=== PATIENT | female | born 1945 | race Caucasian/White ===

== ENCOUNTER 2020-10-25 18:17 | Inpatient (IN) | payer MEDICARE, BC ==
[2020-10-25] MEDS ORDERED: Dextrose 5% in Water 1,000 ML IV PRN (20:09)
[2020-10-25] MEDS ORDERED: Calcium Carbonate 500 MG ChewTAB PO PRN (20:09)
[2020-10-25] MEDS ORDERED: Dextrose 50% Abboject 50 ML SYRINGE SLOW IVP PRN (20:09)
[2020-10-25] MEDS ORDERED: Acetaminophen 325 MG TAB PO PRN (20:09)
[2020-10-25] MEDS ORDERED: HYDROcodone/Acetaminophen 5/325 mg Tablet PO PRN (20:09)
[2020-10-25] MEDS ORDERED: Ondansetron PF 4 MG/2 ML Vial IVP PRN (20:09)
[2020-10-25] MEDS ORDERED: Senokot S 8.6-50 MG TAB PO PRN (20:09)
[2020-10-25] MEDS ORDERED: Guaifenesin DM 100-10/5 ML UDCUP PO PRN (20:09)
[2020-10-25] MEDS ORDERED: Ventolin HFA Inhaler 60 PUFF INHALER INH PRN (20:14)
[2020-10-25] MEDS ORDERED: Cefepime 2 GM VIAL ONE (21:12)
[2020-10-25 21:39] LABS: #Eosinphils 0.5 10x3/uL (0.0-0.5); #Monocytes 0.5 10x3/uL (0.0-1.1); #Neutrophils 4.2 10x3/uL (1.5-8.4); %Basophils 0.4 % (0.0-2.0); %Eosinophils 6.6 % (0.0-6.0); %Lymphocytes 23.6 % (18.0-47.0); %Monocytes 7.9 % (0.0-10.0); %Neutrophils 61.1 % (40.0-75.0); Hemoglobin 12.6 g/dL (12.0-15.5); Mean Corpuscular HGB CONC 31.1 g/dL (32.0-36.0); Mean Corpuscular Hemoglobin 28.9 pg (27.0-33.0); Mean Corpuscular Volume 92.9 fl (81.6-98.3); Mean Platelet Volume 10.8 fl (7.4-10.4); Platelet Count 194 10x3/uL (150-450); Red Blood Cell (RBC) Count 4.36 10x6/uL (3.90-5.03); White Blood Cell (WBC) Count 6.8 10x3/uL (3.5-10.5)
[2020-10-25 21:49] LABS: ALT (SGPT) 42 U/L (8-55); AST (SGOT) 55 U/L (5-34); Albumin 3.8 g/dL (3.4-4.8); Alkaline Phosphatase 178 U/L (40-110); Anion Gap 16 mmol/L (10-20); BUN (Urea Nitrogen) 26 mg/dL (9.8-20.1); Bilirubin, Total 0.5 mg/dL (0.2-1.2); Calc. Creatinine Clearance 0 mL/min (70-130); Calcium 8.5 mg/dL (7.8-10.44); Carbon Dioxide 30 mmol/L (23-31); Chloride 100 mmol/L (98-107); Globulin 2.9 g/dL (2.4-3.5); Glucose 126 mg/dL (83-110); Potassium 4.5 mmol/L (3.5-5.1); Protein, Total 6.7 g/dL (5.8-8.1); Sodium 141 mmol/L (136-145)
[2020-10-25] MEDS ORDERED: Sodium Chloride 0.9% 500 ML IV SCH (22:00)
[2020-10-25] MEDS ORDERED: diphenhydrAMINE 50 MG/ML VIAL ONE (22:34)
[2020-10-25] MEDS ORDERED: methylPREDNISolone Sod Succ 40 MG VIAL IVP SCH (23:45)
[2020-10-25] MEDS ORDERED: Primidone 50 MG TAB PO SCH (23:45)
[2020-10-26 00:26] VITALS: BMI 56.0
[2020-10-26] MEDS: diphenhydrAMINE 50 MG/ML VIAL IVP SCH ×3 (00:33→16:07)
[2020-10-26] MEDS: Famotidine/PF 20 mg/2ml Vial SLOW IVP SCH ×3 (00:37→21:35)
[2020-10-26 06:17] LABS: #Eosinphils 0.1 10x3/uL (0.0-0.5); #Monocytes 0.1 10x3/uL (0.0-1.1); #Neutrophils 4.5 10x3/uL (1.5-8.4); %Basophils 0.5 % (0.0-2.0); %Eosinophils 1.8 % (0.0-6.0); %Lymphocytes 15.8 % (18.0-47.0); %Monocytes 2.5 % (0.0-10.0); %Neutrophils 78.9 % (40.0-75.0); Hemoglobin 12.3 g/dL (12.0-15.5); Mean Corpuscular HGB CONC 30.8 g/dL (32.0-36.0); Mean Corpuscular Hemoglobin 28.7 pg (27.0-33.0); Mean Corpuscular Volume 93.2 fl (81.6-98.3); Mean Platelet Volume 11.5 fl (7.4-10.4); Platelet Count 168 10x3/uL (150-450); Red Blood Cell (RBC) Count 4.28 10x6/uL (3.90-5.03); White Blood Cell (WBC) Count 5.7 10x3/uL (3.5-10.5)
[2020-10-26 06:30] LABS: Anion Gap 17 mmol/L (10-20); BUN (Urea Nitrogen) 23 mg/dL (9.8-20.1); Calc. Creatinine Clearance 88 mL/min (70-130); Calcium 8.3 mg/dL (7.8-10.44); Carbon Dioxide 23 mmol/L (23-31); Chloride 105 mmol/L (98-107); Glucose 171 mg/dL (83-110); Potassium 4.7 mmol/L (3.5-5.1); Sodium 140 mmol/L (136-145)
[2020-10-26] MEDS: HumaLOG 300 UNITS/3 ML VIAL SC PRN ×3 (07:53→23:26)
[2020-10-26] MEDS: Mometasone/Formoterol 200/5 60 PUFF INH SCH ×2 (07:57→20:20)
[2020-10-26] MEDS: Enoxaparin Sodium 40 MG/0.4 ML SYRINGE SC SCH (08:33)
[2020-10-26] MEDS: VANCOMYCIN 1.25 GM/250 ML BAG 1.25 GM in Premix Bag 1 BAG IVPB SCH (08:33)
[2020-10-26] MEDS: Primidone 50 MG TAB PO SCH ×2 (08:34→21:35)
[2020-10-26] MEDS: Lisinopril 5 MG TAB PO SCH (08:34)
[2020-10-26] MEDS: Citalopram 20 MG TAB PO SCH (08:35)
[2020-10-26] MEDS: rOPINIRole HCl 1 MG TAB PO SCH (08:35)
[2020-10-26] MEDS: Gabapentin 300 MG CAP PO SCH (08:35)
[2020-10-26] MEDS: Saccharomyces boulardii 250 MG CAP PO SCH (08:36)
[2020-10-26 11:04] LABS: Hemoglobin A1c 7.3 % (4.0-6.0)
[2020-10-26] MEDS: Cefepime 1 GM in Sodium Chloride 0.9% 100 ML IVPB SCH ×2 (12:47→21:35)
[2020-10-26] MEDS: hydrOXYzine 25 MG TAB PO PRN ×3 (12:47→23:25)
[2020-10-26] MEDS ORDERED: hydrALAZINE 20 MG/ML VIAL SLOW IVP PRN (14:22)
[2020-10-26 14:29] LABS: SARS-CoV-2 PCR by NAA DETECTED (NotDetected)
[2020-10-26] MEDS ORDERED: methylPREDNISolone Sod Succ 40 MG VIAL IVP SCH (14:45)
[2020-10-26] MEDS: Atorvastatin Calcium 10 MG TAB PO SCH (21:36)
[2020-10-27] MEDS: diphenhydrAMINE 50 MG/ML VIAL IVP SCH (00:59)
[2020-10-27] MEDS: hydrOXYzine 25 MG TAB PO PRN ×3 (07:08→22:01)
[2020-10-27] MEDS: Mometasone/Formoterol 200/5 60 PUFF INH SCH ×2 (07:15→18:50)
[2020-10-27] MEDS: Cefepime 1 GM in Sodium Chloride 0.9% 100 ML IVPB SCH ×2 (09:01→20:16)
[2020-10-27] MEDS: Famotidine/PF 20 mg/2ml Vial SLOW IVP SCH ×2 (09:02→20:14)
[2020-10-27] MEDS: Enoxaparin Sodium 40 MG/0.4 ML SYRINGE SC SCH (09:02)
[2020-10-27] MEDS: Citalopram 20 MG TAB PO SCH (09:03)
[2020-10-27] MEDS: rOPINIRole HCl 1 MG TAB PO SCH (09:03)
[2020-10-27] MEDS: Primidone 50 MG TAB PO SCH ×2 (09:03→20:15)
[2020-10-27] MEDS: Gabapentin 300 MG CAP PO SCH (09:03)
[2020-10-27] MEDS: Saccharomyces boulardii 250 MG CAP PO SCH (09:04)
[2020-10-27] MEDS: Lisinopril 5 MG TAB PO SCH (09:05)
[2020-10-27] MEDS: methylPREDNISolone Sod Succ 40 MG VIAL IVP PRN ×2 (09:11→17:36)
[2020-10-27] MEDS: VANCOMYCIN 1.25 GM/250 ML BAG 1.25 GM in Premix Bag 1 BAG IVPB SCH (10:06)
[2020-10-27] MEDS: HumaLOG 300 UNITS/3 ML VIAL SC PRN ×2 (16:39→20:55)
[2020-10-27] MEDS ORDERED: Dextrose 50% Abboject 50 ML SYRINGE SLOW IVP PRN (18:06)
[2020-10-27] MEDS ORDERED: Dextrose 5% in Water 1,000 ML IV PRN (18:06)
[2020-10-27] MEDS ORDERED: diphenhydrAMINE 30 GM TUBE TOP PRN (18:17)
[2020-10-27] MEDS ORDERED: diphenhydrAMINE 50 MG/ML VIAL IVP SCH (18:30)
[2020-10-27] MEDS: Atorvastatin Calcium 10 MG TAB PO SCH (20:14)
[2020-10-28] MEDS: methylPREDNISolone Sod Succ 40 MG VIAL IVP PRN (01:10)
[2020-10-28] MEDS: HumaLOG 300 UNITS/3 ML VIAL SC PRN ×5 (03:44→22:00)
[2020-10-28] MEDS: hydrOXYzine 25 MG TAB PO PRN ×2 (03:49→10:31)
[2020-10-28 05:06] LABS: #Eosinphils 0.3 10x3/uL (0.0-0.5); #Monocytes 0.2 10x3/uL (0.0-1.1); #Neutrophils 4.6 10x3/uL (1.5-8.4); %Basophils 0.2 % (0.0-2.0); %Eosinophils 5.2 % (0.0-6.0); %Lymphocytes 14.1 % (18.0-47.0); %Monocytes 2.7 % (0.0-10.0); %Neutrophils 77.5 % (40.0-75.0); Hemoglobin 11.8 g/dL (12.0-15.5); Mean Corpuscular HGB CONC 31.1 g/dL (32.0-36.0); Mean Corpuscular Hemoglobin 29.2 pg (27.0-33.0); Mean Corpuscular Volume 93.8 fl (81.6-98.3); Mean Platelet Volume 11.3 fl (7.4-10.4); Platelet Count 166 10x3/uL (150-450); Red Blood Cell (RBC) Count 4.04 10x6/uL (3.90-5.03)
[2020-10-28 05:22] LABS: Anion Gap 13 mmol/L (10-20); BUN (Urea Nitrogen) 14 mg/dL (9.8-20.1); Calc. Creatinine Clearance 106 mL/min (70-130); Calcium 8.7 mg/dL (7.8-10.44); Carbon Dioxide 27 mmol/L (23-31); Chloride 105 mmol/L (98-107); Glucose 183 mg/dL (83-110); Potassium 4.4 mmol/L (3.5-5.1); Sodium 141 mmol/L (136-145)
[2020-10-28] MEDS: Mometasone/Formoterol 200/5 60 PUFF INH SCH ×2 (08:30→19:40)
[2020-10-28] MEDS: Citalopram 20 MG TAB PO SCH (10:32)
[2020-10-28] MEDS: Gabapentin 300 MG CAP PO SCH (10:33)
[2020-10-28] MEDS: Primidone 50 MG TAB PO SCH ×2 (10:33→20:45)
[2020-10-28] MEDS: Famotidine/PF 20 mg/2ml Vial SLOW IVP SCH ×2 (10:34→20:46)
[2020-10-28] MEDS: Enoxaparin Sodium 40 MG/0.4 ML SYRINGE SC SCH (10:34)
[2020-10-28] MEDS: Saccharomyces boulardii 250 MG CAP PO SCH (10:34)
[2020-10-28] MEDS: Cefepime 1 GM in Sodium Chloride 0.9% 100 ML IVPB SCH ×2 (10:34→20:49)
[2020-10-28] MEDS: rOPINIRole HCl 1 MG TAB PO SCH (10:41)
[2020-10-28] MEDS: VANCOMYCIN 1.25 GM/250 ML BAG 1.25 GM in Premix Bag 1 BAG IVPB SCH (10:53)
[2020-10-28] MEDS: Lisinopril 5 MG TAB PO SCH (10:53)
[2020-10-28] MEDS ORDERED: diphenhydrAMINE 25 MG CAP PO SCH (11:00)
[2020-10-28] MEDS: methylPREDNISolone Sod Succ 40 MG VIAL IVP SCH ×2 (14:01→21:53)
[2020-10-28] MEDS ORDERED: Loratadine 10 MG TAB PO SCH (14:30)
[2020-10-28] MEDS: diphenhydrAMINE 30 GM TUBE TOP SCH ×2 (17:03→20:40)
[2020-10-28] MEDS: diphenhydrAMINE 25 MG in Sodium Chloride 0.9% 50 ML IVPB SCH (20:43)
[2020-10-28] MEDS: Atorvastatin Calcium 10 MG TAB PO SCH (20:45)
[2020-10-29] MEDS: diphenhydrAMINE 25 MG in Sodium Chloride 0.9% 50 ML IVPB SCH (02:49)
[2020-10-29] MEDS: methylPREDNISolone Sod Succ 40 MG VIAL IVP SCH ×3 (05:33→17:26)
[2020-10-29 06:38] LABS: #Eosinphils 0.6 10x3/uL (0.0-0.5); #Monocytes 0.4 10x3/uL (0.0-1.1); #Neutrophils 3.6 10x3/uL (1.5-8.4); %Basophils 0.3 % (0.0-2.0); %Lymphocytes 25.4 % (18.0-47.0); %Monocytes 6.8 % (0.0-10.0); %Neutrophils 58.2 % (40.0-75.0); Hemoglobin 11.2 g/dL (12.0-15.5); Mean Corpuscular HGB CONC 31.2 g/dL (32.0-36.0); Mean Corpuscular Hemoglobin 29.2 pg (27.0-33.0); Mean Corpuscular Volume 93.7 fl (81.6-98.3); Mean Platelet Volume 11.6 fl (7.4-10.4); Platelet Count 152 10x3/uL (150-450); RBC Distribution Width 15.1 % (11.5-14.5); Red Blood Cell (RBC) Count 3.83 10x6/uL (3.90-5.03); White Blood Cell (WBC) Count 6.2 10x3/uL (3.5-10.5)
[2020-10-29 06:53] LABS: Anion Gap 13 mmol/L (10-20); BUN (Urea Nitrogen) 15 mg/dL (9.8-20.1); Calc. Creatinine Clearance 116 mL/min (70-130); Calcium 8.5 mg/dL (7.8-10.44); Carbon Dioxide 27 mmol/L (23-31); Chloride 105 mmol/L (98-107); Glucose 163 mg/dL (83-110); Potassium 4.3 mmol/L (3.5-5.1); Sodium 141 mmol/L (136-145)
[2020-10-29] MEDS: Mometasone/Formoterol 200/5 60 PUFF INH SCH ×2 (07:40→19:13)
[2020-10-29] MEDS: diphenhydrAMINE 50 MG in Sodium Chloride 0.9% 50 ML IVPB SCH ×2 (09:37→17:25)
[2020-10-29] MEDS: Cefepime 1 GM in Sodium Chloride 0.9% 100 ML IVPB SCH (09:47)
[2020-10-29] MEDS: Enoxaparin Sodium 40 MG/0.4 ML SYRINGE SC SCH (09:48)
[2020-10-29] MEDS: Famotidine/PF 20 mg/2ml Vial SLOW IVP SCH ×2 (09:48→20:33)
[2020-10-29] MEDS: Primidone 50 MG TAB PO SCH ×2 (09:49→20:33)
[2020-10-29] MEDS: Citalopram 20 MG TAB PO SCH (09:49)
[2020-10-29] MEDS: rOPINIRole HCl 1 MG TAB PO SCH (09:49)
[2020-10-29] MEDS: Loratadine 10 MG TAB PO SCH (09:50)
[2020-10-29] MEDS: Gabapentin 300 MG CAP PO SCH (09:50)
[2020-10-29] MEDS: Lisinopril 5 MG TAB PO SCH (09:51)
[2020-10-29] MEDS: Saccharomyces boulardii 250 MG CAP PO SCH (09:51)
[2020-10-29] MEDS: diphenhydrAMINE 30 GM TUBE TOP SCH ×4 (09:55→20:33)
[2020-10-29] MEDS: HumaLOG 300 UNITS/3 ML VIAL SC PRN ×3 (12:29→21:21)
[2020-10-29] MEDS: Atorvastatin Calcium 10 MG TAB PO SCH (20:33)
[2020-10-30] MEDS: diphenhydrAMINE 50 MG in Sodium Chloride 0.9% 50 ML IVPB SCH ×3 (01:54→18:07)
[2020-10-30] MEDS: methylPREDNISolone Sod Succ 40 MG VIAL IVP SCH ×2 (01:59→09:35)
[2020-10-30] MEDS: HumaLOG 300 UNITS/3 ML VIAL SC PRN ×3 (04:46→17:10)
[2020-10-30 06:08] LABS: #Eosinphils 0.3 10x3/uL (0.0-0.5); #Monocytes 0.3 10x3/uL (0.0-1.1); #Neutrophils 3.7 10x3/uL (1.5-8.4); %Basophils 0.6 % (0.0-2.0); %Eosinophils 5.6 % (0.0-6.0); %Lymphocytes 16.1 % (18.0-47.0); %Monocytes 5.9 % (0.0-10.0); %Neutrophils 71.4 % (40.0-75.0); Hemoglobin 11.3 g/dL (12.0-15.5); Mean Corpuscular HGB CONC 30.9 g/dL (32.0-36.0); Mean Corpuscular Volume 93.8 fl (81.6-98.3); Mean Platelet Volume 11.5 fl (7.4-10.4); Platelet Count 154 10x3/uL (150-450); White Blood Cell (WBC) Count 5.2 10x3/uL (3.5-10.5)
[2020-10-30 06:26] LABS: Anion Gap 12 mmol/L (10-20); BUN (Urea Nitrogen) 16 mg/dL (9.8-20.1); Calc. Creatinine Clearance 111 mL/min (70-130); Calcium 8.3 mg/dL (7.8-10.44); Carbon Dioxide 29 mmol/L (23-31); Chloride 104 mmol/L (98-107); Glucose 233 mg/dL (83-110); Potassium 3.9 mmol/L (3.5-5.1); Sodium 141 mmol/L (136-145)
[2020-10-30] MEDS: Mometasone/Formoterol 200/5 60 PUFF INH SCH ×2 (07:30→19:35)
[2020-10-30] MEDS: diphenhydrAMINE 30 GM TUBE TOP SCH ×4 (09:19→22:05)
[2020-10-30] MEDS: Gabapentin 300 MG CAP PO SCH (09:32)
[2020-10-30] MEDS: Saccharomyces boulardii 250 MG CAP PO SCH (09:32)
[2020-10-30] MEDS: Citalopram 20 MG TAB PO SCH (09:33)
[2020-10-30] MEDS: Lisinopril 5 MG TAB PO SCH (09:33)
[2020-10-30] MEDS: Loratadine 10 MG TAB PO SCH (09:33)
[2020-10-30] MEDS: Famotidine/PF 20 mg/2ml Vial SLOW IVP SCH ×2 (09:35→21:05)
[2020-10-30] MEDS: rOPINIRole HCl 1 MG TAB PO SCH (09:48)
[2020-10-30] MEDS ORDERED: Ketorolac Tromethamine 30 MG/ML VIAL IVP SCH (12:15)
[2020-10-30] MEDS: Enoxaparin Sodium 40 MG/0.4 ML SYRINGE SC SCH (12:19)
[2020-10-30] MEDS: Primidone 50 MG TAB PO SCH ×3 (12:33→21:05)
[2020-10-30] MEDS: methylPREDNISolone Sod Succ/PF 125 MG/2 ML VIAL IVP SCH ×2 (13:24→22:10)
[2020-10-30] MEDS: Atorvastatin Calcium 10 MG TAB PO SCH (21:06)
[2020-10-31] MEDS: HumaLOG 300 UNITS/3 ML VIAL SC PRN ×4 (00:33→18:05)
[2020-10-31] MEDS: diphenhydrAMINE 50 MG in Sodium Chloride 0.9% 50 ML IVPB SCH ×3 (02:02→18:04)
[2020-10-31 05:16] LABS: #Monocytes 0.3 10x3/uL (0.0-1.1); #Neutrophils 4.6 10x3/uL (1.5-8.4); %Basophils 0.2 % (0.0-2.0); %Eosinophils 0.5 % (0.0-6.0); %Lymphocytes 15.1 % (18.0-47.0); %Monocytes 5.1 % (0.0-10.0); %Neutrophils 78.6 % (40.0-75.0); Hemoglobin 11.2 g/dL (12.0-15.5); Mean Corpuscular HGB CONC 30.9 g/dL (32.0-36.0); Mean Corpuscular Hemoglobin 28.9 pg (27.0-33.0); Mean Corpuscular Volume 93.3 fl (81.6-98.3); Mean Platelet Volume 11.7 fl (7.4-10.4); Platelet Count 141 10x3/uL (150-450); RBC Distribution Width 14.9 % (11.5-14.5); Red Blood Cell (RBC) Count 3.88 10x6/uL (3.90-5.03); White Blood Cell (WBC) Count 5.8 10x3/uL (3.5-10.5)
[2020-10-31 05:33] LABS: Anion Gap 11 mmol/L (10-20); BUN (Urea Nitrogen) 17 mg/dL (9.8-20.1); Calc. Creatinine Clearance 110 mL/min (70-130); Calcium 8.3 mg/dL (7.8-10.44); Carbon Dioxide 28 mmol/L (23-31); Chloride 103 mmol/L (98-107); Glucose 268 mg/dL (83-110); Potassium 4.2 mmol/L (3.5-5.1); Sodium 138 mmol/L (136-145)
[2020-10-31] MEDS: methylPREDNISolone Sod Succ/PF 125 MG/2 ML VIAL IVP SCH ×3 (06:36→22:02)
[2020-10-31] MEDS: Mometasone/Formoterol 200/5 60 PUFF INH SCH ×2 (07:24→19:40)
[2020-10-31] MEDS: Enoxaparin Sodium 40 MG/0.4 ML SYRINGE SC SCH (09:13)
[2020-10-31] MEDS: Loratadine 10 MG TAB PO SCH (09:14)
[2020-10-31] MEDS: Primidone 50 MG TAB PO SCH ×2 (09:14→22:01)
[2020-10-31] MEDS: Citalopram 20 MG TAB PO SCH (09:14)
[2020-10-31] MEDS: diphenhydrAMINE 30 GM TUBE TOP SCH ×3 (09:14→18:05)
[2020-10-31] MEDS: Gabapentin 300 MG CAP PO SCH ×2 (09:14→22:01)
[2020-10-31] MEDS: Lisinopril 5 MG TAB PO SCH (09:14)
[2020-10-31] MEDS: Famotidine/PF 20 mg/2ml Vial SLOW IVP SCH ×2 (09:15→22:02)
[2020-10-31] MEDS: Saccharomyces boulardii 250 MG CAP PO SCH (09:15)
[2020-10-31] MEDS: rOPINIRole HCl 1 MG TAB PO SCH (09:43)
[2020-10-31] MEDS: Atorvastatin Calcium 10 MG TAB PO SCH (21:59)
[2020-10-31] MEDS: Linezolid 600 MG TAB PO SCH (21:59)
[2020-10-31] MEDS: Ketorolac Tromethamine 30 MG/ML VIAL IVP PRN (22:11)
[2020-11-01] MEDS: HumaLOG 300 UNITS/3 ML VIAL SC PRN ×4 (00:15→17:57)
[2020-11-01] MEDS: diphenhydrAMINE 30 GM TUBE TOP SCH ×5 (04:32→20:54)
[2020-11-01] MEDS: diphenhydrAMINE 50 MG in Sodium Chloride 0.9% 50 ML IVPB SCH ×3 (04:32→20:41)
[2020-11-01] MEDS: methylPREDNISolone Sod Succ/PF 125 MG/2 ML VIAL IVP SCH (05:56)
[2020-11-01] MEDS: Mometasone/Formoterol 200/5 60 PUFF INH SCH ×2 (08:59→19:45)
[2020-11-01] MEDS: Ketorolac Tromethamine 30 MG/ML VIAL IVP PRN ×2 (10:15→20:57)
[2020-11-01] MEDS: Famotidine/PF 20 mg/2ml Vial SLOW IVP SCH ×2 (10:16→20:41)
[2020-11-01] MEDS: Linezolid 600 MG TAB PO SCH ×2 (10:16→20:54)
[2020-11-01] MEDS: rOPINIRole HCl 1 MG TAB PO SCH (10:16)
[2020-11-01] MEDS: Primidone 50 MG TAB PO SCH ×2 (10:17→20:43)
[2020-11-01] MEDS: Gabapentin 300 MG CAP PO SCH ×2 (10:17→20:42)
[2020-11-01] MEDS: Saccharomyces boulardii 250 MG CAP PO SCH (10:17)
[2020-11-01] MEDS: Citalopram 20 MG TAB PO SCH (10:17)
[2020-11-01] MEDS: Loratadine 10 MG TAB PO SCH (10:17)
[2020-11-01] MEDS: Lisinopril 5 MG TAB PO SCH (10:17)
[2020-11-01] MEDS: methylPREDNISolone Sod Succ 40 MG VIAL IVP SCH (20:42)
[2020-11-01] MEDS: Atorvastatin Calcium 10 MG TAB PO SCH (20:43)
[2020-11-02] MEDS: HumaLOG 300 UNITS/3 ML VIAL SC PRN ×2 (00:19→18:33)
[2020-11-02] MEDS: Mometasone/Formoterol 200/5 60 PUFF INH SCH ×2 (10:15→19:31)
[2020-11-02] MEDS: Primidone 50 MG TAB PO SCH ×2 (10:18→20:52)
[2020-11-02] MEDS: Saccharomyces boulardii 250 MG CAP PO SCH (10:19)
[2020-11-02] MEDS: Gabapentin 300 MG CAP PO SCH ×2 (10:19→20:53)
[2020-11-02] MEDS: Lisinopril 5 MG TAB PO SCH (10:19)
[2020-11-02] MEDS: Citalopram 20 MG TAB PO SCH (10:19)
[2020-11-02] MEDS: Linezolid 600 MG TAB PO SCH ×2 (10:19→20:52)
[2020-11-02] MEDS: Loratadine 10 MG TAB PO SCH (10:19)
[2020-11-02] MEDS: Famotidine/PF 20 mg/2ml Vial SLOW IVP SCH ×2 (10:20→20:54)
[2020-11-02] MEDS: methylPREDNISolone Sod Succ 40 MG VIAL IVP SCH (10:20)
[2020-11-02] MEDS: Enoxaparin Sodium 40 MG/0.4 ML SYRINGE SC SCH (10:20)
[2020-11-02] MEDS: diphenhydrAMINE 50 MG in Sodium Chloride 0.9% 50 ML IVPB SCH (10:22)
[2020-11-02] MEDS: rOPINIRole HCl 1 MG TAB PO SCH (10:22)
[2020-11-02] MEDS: diphenhydrAMINE 30 GM TUBE TOP SCH ×4 (10:22→21:03)
[2020-11-02] MEDS: Atorvastatin Calcium 10 MG TAB PO SCH (20:52)
[2020-11-02] MEDS: diphenhydrAMINE 50 MG CAP PO SCH (20:52)
[2020-11-02] MEDS: Ketorolac Tromethamine 30 MG/ML VIAL IVP PRN (21:00)
[2020-11-03] MEDS: HumaLOG 300 UNITS/3 ML VIAL SC PRN ×2 (00:54→12:30)
[2020-11-03] MEDS: Mometasone/Formoterol 200/5 60 PUFF INH SCH (07:45)
[2020-11-03] MEDS ORDERED: predniSONE 20 MG TAB PO SCH (08:00)
[2020-11-03] MEDS: Loratadine 10 MG TAB PO SCH (08:43)
[2020-11-03] MEDS: Saccharomyces boulardii 250 MG CAP PO SCH (08:43)
[2020-11-03] MEDS: Citalopram 20 MG TAB PO SCH (08:45)
[2020-11-03] MEDS: diphenhydrAMINE 50 MG CAP PO SCH (08:45)
[2020-11-03] MEDS: Primidone 50 MG TAB PO SCH (08:45)
[2020-11-03] MEDS: Gabapentin 300 MG CAP PO SCH (08:46)
[2020-11-03] MEDS: diphenhydrAMINE 30 GM TUBE TOP SCH ×2 (08:47→14:46)
[2020-11-03] MEDS: Enoxaparin Sodium 40 MG/0.4 ML SYRINGE SC SCH (08:47)
[2020-11-03] MEDS: Famotidine/PF 20 mg/2ml Vial SLOW IVP SCH (08:48)
[2020-11-03] MEDS ORDERED: Penicillin V Potassium 250 MG TAB PO SCH (09:00)
[2020-11-03] MEDS: Lisinopril 5 MG TAB PO SCH (10:18)
[2020-11-03] MEDS: rOPINIRole HCl 1 MG TAB PO SCH (10:18)
[2020-11-03 13:05] VITALS: BP 165/67; TEMP 98.5
== END 2020-11-03 14:17 | disposition home or self-care (01) | DRG 603 ==
LOC: CSHERS 18:17 → CSHTELE 23:42
PROVIDERS: ADMIT Student in an Organized Health Care Education/Training Program; ATTEND Family Medicine
DX: L03.115 Cellulitis of right lower limb (principal); F33.9 Major depressive disorder, recurrent, unspecified; Z68.43 Body mass index [BMI] 50.0-59.9, adult; N17.9 Acute kidney failure, unspecified; E78.5 Hyperlipidemia, unspecified; T36.95XA Adverse effect of unspecified systemic antibiotic, initial encounter; G47.33 Obstructive sleep apnea (adult) (pediatric); G25.0 Essential tremor; L50.1 Idiopathic urticaria; E11.22 Type 2 diabetes mellitus with diabetic chronic kidney disease; I12.9 Hypertensive chronic kidney disease with stage 1 through stage 4 chronic kidney disease, or unspecified chronic kidney disease; N18.2 Chronic kidney disease, stage 2 (mild); L50.9 Urticaria, unspecified; E66.01 Morbid (severe) obesity due to excess calories; E11.65 Type 2 diabetes mellitus with hyperglycemia; G25.81 Restless legs syndrome; I89.0 Lymphedema, not elsewhere classified; R53.81 Other malaise; I25.10 Atherosclerotic heart disease of native coronary artery without angina pectoris; Z90.710 Acquired absence of both cervix and uterus; Z86.16 Personal history of COVID-19; Z98.84 Bariatric surgery status; Z87.442 Personal history of urinary calculi; Z96.652 Presence of left artificial knee joint; Z90.49 Acquired absence of other specified parts of digestive tract; Z88.1 Allergy status to other antibiotic agents
CPT/HCPCS: 36416; 80048; 80053; 80202; 83036; 83605; 85025; 87040; 87635; 93005; 94640; 94760; 96365; 96375; J0360; J0692; J1200; J1650; J1815; J1885; J2920; J2930; J3370; J3490; J7512; J7620; Q0163; S0028; U0003; U0005

== ENCOUNTER 2022-04-27 13:29 | Inpatient (IN) | payer MEDICARE, BC ==
[~2022-04-27 13:29] MED LIST: Iopamidol 370 76% 100 ML VIAL ONE
[2022-04-27] MEDS ORDERED: Cefepime 2 GM VIAL ONE (14:10)
[2022-04-27 14:27] LABS: #Basophils 0.1 10x3/uL (0.0-0.2); #Eosinphils 0.4 10x3/uL (0.0-0.5); #Monocytes 0.6 10x3/uL (0.0-1.1); #Neutrophils 3.6 10x3/uL (1.5-8.4); %Eosinophils 5.7 % (0.0-6.0); %Lymphocytes 33.8 % (18.0-47.0); %Monocytes 8.7 % (0.0-10.0); %Neutrophils 50.4 % (40.0-75.0); Hemoglobin 12.8 g/dL (12.0-15.5); Mean Corpuscular HGB CONC 31.8 g/dL (32.0-36.0); Mean Corpuscular Hemoglobin 28.6 pg (27.0-33.0); Mean Platelet Volume 10.4 fl (7.4-10.4); Platelet Count 210 10x3/uL (150-450); RBC Distribution Width 14.6 % (11.5-14.5); Red Blood Cell (RBC) Count 4.48 10x6/uL (3.90-5.03); White Blood Cell (WBC) Count 7.1 10x3/uL (3.5-10.5)
[2022-04-27 14:33] LABS: ALT (SGPT) 19 U/L (8-55); AST (SGOT) 33 U/L (5-34); Albumin 3.7 g/dL (3.4-4.8); Alkaline Phosphatase 94 U/L (40-110); Anion Gap 13 mmol/L (10-20); BUN (Urea Nitrogen) 13 mg/dL (9.8-20.1); Bilirubin, Total 0.4 mg/dL (0.2-1.2); CRP (Inflammatory) Less than 0.50 mg/dL (= or < 0.5); Calc. Creatinine Clearance 0 mL/min (70-130); Calcium 8.7 mg/dL (7.8-10.44); Carbon Dioxide 31 mmol/L (23-31); Chloride 97 mmol/L (98-107); Estimated GFR 81; Globulin 3.1 g/dL (2.4-3.5); Glucose 161 mg/dL (83-110); Potassium 4.6 mmol/L (3.5-5.1); Protein, Total 6.8 g/dL (5.8-8.1); Sodium 136 mmol/L (136-145)
[2022-04-27] MEDS ORDERED: Dextrose 50% Abboject 50 ML SYRINGE SLOW IVP PRN (17:58)
[2022-04-27] MEDS ORDERED: HumaLOG 300 UNITS/3 ML VIAL SC PRN ×2 (17:58)
[2022-04-27] MEDS ORDERED: Dextrose 5% in Water 1,000 ML IV PRN (17:58)
[2022-04-27] MEDS ORDERED: Acetaminophen 325 MG TAB PO PRN (17:59)
[2022-04-27] MEDS ORDERED: Ondansetron PF 4 MG/2 ML Vial IVP PRN (17:59)
[2022-04-27] MEDS ORDERED: Senokot S 8.6-50 MG TAB PO PRN (17:59)
[2022-04-27] MEDS ORDERED: Ondansetron ODT 4 MG TAB PO PRN (17:59)
[2022-04-27] MEDS ORDERED: traMADol HCl 50 MG TAB PO PRN (18:02)
[2022-04-27] MEDS: Enoxaparin Sodium 40 MG/0.4 ML SYRINGE SC SCH (22:00)
[2022-04-27] MEDS: Famotidine 20 MG TAB PO SCH (22:00)
[2022-04-27] MEDS ORDERED: Vancomycin HCl 500 MG in Sodium Chloride 0.9% 100 ML IVPB SCH (23:59)
[2022-04-28] MEDS ORDERED: Primidone 50 MG TAB PO SCH ×2 (02:00→21:00)
[2022-04-28] MEDS ORDERED: Loratadine 10 MG TAB PO SCH (02:00)
[2022-04-28] MEDS ORDERED: Pramipexole Di-HCl 0.25 MG TAB PO SCH ×3 (02:00→21:00)
[2022-04-28] MEDS: Cefepime 1 GM in Sodium Chloride 0.9% 100 ML IVPB SCH ×2 (02:55→13:55)
[2022-04-28 05:20] LABS: SARS-CoV-2 NAA Rapid Test Not Detected (NotDetected)
[2022-04-28 06:36] LABS: #Basophils 0.1 10x3/uL (0.0-0.2); #Eosinphils 0.5 10x3/uL (0.0-0.5); #Monocytes 0.5 10x3/uL (0.0-1.1); #Neutrophils 3.4 10x3/uL (1.5-8.4); %Eosinophils 7.6 % (0.0-6.0); %Lymphocytes 28.4 % (18.0-47.0); %Monocytes 8.2 % (0.0-10.0); %Neutrophils 54.3 % (40.0-75.0); Mean Corpuscular Hemoglobin 28.6 pg (27.0-33.0); Mean Corpuscular Volume 89.5 fl (81.6-98.3); Mean Platelet Volume 10.6 fl (7.4-10.4); Platelet Count 203 10x3/uL (150-450); RBC Distribution Width 14.3 % (11.5-14.5); Red Blood Cell (RBC) Count 4.19 10x6/uL (3.90-5.03); White Blood Cell (WBC) Count 6.2 10x3/uL (3.5-10.5)
[2022-04-28 06:51] LABS: Anion Gap 12 mmol/L (10-20); BUN (Urea Nitrogen) 13 mg/dL (9.8-20.1); Calc. Creatinine Clearance 0 mL/min (70-130); Calcium 8.3 mg/dL (7.8-10.44); Carbon Dioxide 31 mmol/L (23-31); Chloride 101 mmol/L (98-107); Estimated GFR 89; Glucose 142 mg/dL (83-110); Potassium 4.2 mmol/L (3.5-5.1); Sodium 140 mmol/L (136-145)
[2022-04-28] MEDS ORDERED: diphenhydrAMINE 25 MG CAP PO PRN (08:25)
[2022-04-28] MEDS ORDERED: ARMODAFINIL 150 MG PO SCH (09:00)
[2022-04-28] MEDS: Multivit, Therapeutic 1 TAB PO SCH (09:11)
[2022-04-28] MEDS: Citalopram 20 MG TAB PO SCH (09:12)
[2022-04-28] MEDS: Cholecalciferol 1,000 UNITS (25 MCG) TAB PO SCH (09:12)
[2022-04-28] MEDS: Clopidogrel Bisulfate 75 MG TAB PO SCH (09:12)
[2022-04-28] MEDS: Loratadine 10 MG TAB PO SCH (09:13)
[2022-04-28] MEDS: Losartan 25 MG TAB PO SCH (09:13)
[2022-04-28] MEDS: Famotidine 20 MG TAB PO SCH ×2 (09:14→21:49)
[2022-04-28] MEDS ORDERED: Vancomycin 1.5 GRAM/300 ML BAG 1.5 GM in Premix Bag 1 BAG IVPB SCH (15:00)
[2022-04-28 15:08] LABS: Hemoglobin A1c 6.7 % (4.0-6.0)
[2022-04-28] MEDS ORDERED: Atorvastatin Calcium 10 MG TAB PO SCH (21:00)
[2022-04-28] MEDS ORDERED: Gabapentin 300 MG CAP PO SCH (21:00)
[2022-04-28] MEDS: Enoxaparin Sodium 40 MG/0.4 ML SYRINGE SC SCH (21:48)
[2022-04-29] MEDS: Cefepime 1 GM in Sodium Chloride 0.9% 100 ML IVPB SCH ×2 (01:42→08:21)
[2022-04-29 04:47] LABS: #Basophils 0.1 10x3/uL (0.0-0.2); #Eosinphils 0.5 10x3/uL (0.0-0.5); #Monocytes 0.5 10x3/uL (0.0-1.1); #Neutrophils 3.3 10x3/uL (1.5-8.4); %Basophils 0.9 % (0.0-2.0); %Eosinophils 7.5 % (0.0-6.0); %Lymphocytes 31.4 % (18.0-47.0); %Monocytes 8.2 % (0.0-10.0); %Neutrophils 51.5 % (40.0-75.0); Hemoglobin 11.3 g/dL (12.0-15.5); Mean Corpuscular HGB CONC 31.9 g/dL (32.0-36.0); Mean Corpuscular Hemoglobin 28.7 pg (27.0-33.0); Mean Corpuscular Volume 89.8 fl (81.6-98.3); Mean Platelet Volume 10.8 fl (7.4-10.4); Platelet Count 204 10x3/uL (150-450); RBC Distribution Width 14.6 % (11.5-14.5); Red Blood Cell (RBC) Count 3.94 10x6/uL (3.90-5.03); White Blood Cell (WBC) Count 6.4 10x3/uL (3.5-10.5)
[2022-04-29 04:56] LABS: Anion Gap 11 mmol/L (10-20); BUN (Urea Nitrogen) 14 mg/dL (9.8-20.1); Calc. Creatinine Clearance 0 mL/min (70-130); Carbon Dioxide 29 mmol/L (23-31); Chloride 104 mmol/L (98-107); Estimated GFR 89; Glucose 127 mg/dL (83-110); Magnesium 1.8 mg/dL (1.6-2.6); Sodium 140 mmol/L (136-145)
[2022-04-29] MEDS ORDERED: Cefepime 1 GM in Sodium Chloride 0.9% 100 ML IVPB SCH (08:00)
[2022-04-29] MEDS ORDERED: Sodium Chloride 0.9% 100 ML ONE (08:51)
[2022-04-29] MEDS: Multivit, Therapeutic 1 TAB PO SCH (08:56)
[2022-04-29] MEDS: Losartan 25 MG TAB PO SCH (08:57)
[2022-04-29] MEDS: Citalopram 20 MG TAB PO SCH (08:57)
[2022-04-29] MEDS: Famotidine 20 MG TAB PO SCH (08:57)
[2022-04-29] MEDS: Cholecalciferol 1,000 UNITS (25 MCG) TAB PO SCH (08:57)
[2022-04-29] MEDS: Clopidogrel Bisulfate 75 MG TAB PO SCH (08:57)
[2022-04-29] MEDS: Loratadine 10 MG TAB PO SCH (08:57)
[2022-04-29] MEDS ORDERED: Furosemide 20 MG TAB PO SCH (09:00)
[2022-04-29 12:17] VITALS: BMI 45.0
[2022-04-29] MEDS ORDERED: Doxycycline 100 MG CAP PO SCH (13:00)
[2022-04-29] MEDS ORDERED: Amoxicillin/Potassium Clav 875 MG TAB PO SCH (13:00)
[2022-04-29 15:11] VITALS: BP 179/79; TEMP 98.4
[2022-04-30] MEDS ORDERED: Amoxicillin/Potassium Clav 875 MG TAB PO SCH (09:00)
[2022-04-30] MEDS ORDERED: Doxycycline 100 MG CAP PO SCH (09:00)
== END 2022-04-29 19:00 | disposition home health service (06) | DRG 603 ==
LOC: CSHERS 13:29 → CSHTELE 17:49
PROVIDERS: ADMIT Family Medicine; ATTEND Family Medicine
DX: L03.115 Cellulitis of right lower limb (principal); Z68.42 Body mass index [BMI] 45.0-49.9, adult; R21 Rash and other nonspecific skin eruption; E78.5 Hyperlipidemia, unspecified; F32.A Depression, unspecified; N20.0 Calculus of kidney; I10 Essential (primary) hypertension; R60.9 Edema, unspecified; E11.65 Type 2 diabetes mellitus with hyperglycemia; Z96.652 Presence of left artificial knee joint; E66.01 Morbid (severe) obesity due to excess calories; G47.33 Obstructive sleep apnea (adult) (pediatric); G25.81 Restless legs syndrome; I25.10 Atherosclerotic heart disease of native coronary artery without angina pectoris; Z20.822 Contact with and (suspected) exposure to COVID-19; Z98.890 Other specified postprocedural states; Z95.5 Presence of coronary angioplasty implant and graft; Z98.84 Bariatric surgery status; Z79.02 Long term (current) use of antithrombotics/antiplatelets; Z88.8 Allergy status to other drugs, medicaments and biological substances; Z79.899 Other long term (current) drug therapy; Z90.49 Acquired absence of other specified parts of digestive tract; Z90.710 Acquired absence of both cervix and uterus; Z88.2 Allergy status to sulfonamides; Z88.0 Allergy status to penicillin; Z88.1 Allergy status to other antibiotic agents
CPT/HCPCS: 36415; 36416; 71275; 80048; 80053; 83036; 83605; 83735; 85025; 85652; 86140; 87040; 94760; J0692; J1650; J1815; J3370; J3490; Q9967; U0002

== ENCOUNTER 2023-05-01 13:12 | Day surgery (SDC) | payer MEDICARE, BC ==
[2023-05-01 15:03] VITALS: BP 195/85; TEMP 97.3
[2023-05-01] MEDS ORDERED: FLU VACC QS2023(65UP)/MF59C/PF 60 MCG/0.5 ML SYRINGE IM ONE (15:15)
== END 2023-05-01 15:00 | disposition home or self-care (01) ==
LOC: CSHULT 13:12
PROVIDERS: ATTEND Internal Medicine Endocrinology, Diabetes & Metabolism
PROC: 0GBG3ZX Excision of Left Thyroid Gland Lobe, Percutaneous Approach, Diagnostic (ICD-10-PCS; principal; 2023-05-01)
DX: D34 Benign neoplasm of thyroid gland (principal); E05.90 Thyrotoxicosis, unspecified without thyrotoxic crisis or storm; E11.9 Type 2 diabetes mellitus without complications; I10 Essential (primary) hypertension; I25.10 Atherosclerotic heart disease of native coronary artery without angina pectoris; E03.9 Hypothyroidism, unspecified; Z90.49 Acquired absence of other specified parts of digestive tract; Z90.710 Acquired absence of both cervix and uterus; Z88.1 Allergy status to other antibiotic agents; Z98.84 Bariatric surgery status; Z79.899 Other long term (current) drug therapy
CPT/HCPCS: 10005; 88173

== ENCOUNTER 2023-09-14 19:01 | Emergency (ER) | payer MEDICARE, BC ==
[2023-09-14] MEDS ORDERED: HYDROcodone/Acetaminophen 5/325 mg Tablet ONE (20:15)
[2023-09-14 20:34] LABS: #Basophils 0.1 10x3/uL (0.0-0.2); #Eosinphils 0.2 10x3/uL (0.0-0.5); #Monocytes 0.4 10x3/uL (0.0-1.1); #Neutrophils 5.5 10x3/uL (1.5-8.4); %Basophils 0.6 % (0.0-2.0); %Lymphocytes 22.1 % (18.0-47.0); %Monocytes 4.7 % (0.0-10.0); %Neutrophils 70.2 % (40.0-75.0); Hematocrit 45.5 % (34.9-44.5); Hemoglobin 14.4 g/dL (12.0-15.5); Mean Corpuscular HGB CONC 31.6 g/dL (32.0-36.0); Mean Corpuscular Hemoglobin 29.1 pg (27.0-33.0); Mean Corpuscular Volume 91.9 fl (81.6-98.3); Mean Platelet Volume 10.7 fl (7.4-10.4); Platelet Count 194 10x3/uL (150-450); RBC Distribution Width 14.6 % (11.5-14.5); Red Blood Cell (RBC) Count 4.95 10x6/uL (3.90-5.03); White Blood Cell (WBC) Count 7.9 10x3/uL (3.5-10.5)
[2023-09-14 20:50] LABS: PTT 27.9 sec (22.0-33.0); Prothrombin Time 10.7 sec (9.5-12.1)
[2023-09-14 20:51] LABS: ALT (SGPT) 28 U/L (8-55); AST (SGOT) 35 U/L (5-34); Alkaline Phosphatase 126 U/L (40-110); Anion Gap 18 mmol/L (10-20); BUN (Urea Nitrogen) 17 mg/dL (9.8-20.1); Bilirubin, Total 0.5 mg/dL (0.2-1.2); Calc. Creatinine Clearance 0 mL/min (70-130); Calcium 8.9 mg/dL (7.8-10.44); Carbon Dioxide 21 mmol/L (23-31); Chloride 106 mmol/L (98-107); Estimated GFR 53; Globulin 3.4 g/dL (2.4-3.5); Glucose 154 mg/dL (83-110); Potassium 4.2 mmol/L (3.5-5.1); Protein, Total 7.4 g/dL (5.8-8.1); Sodium 141 mmol/L (136-145)
[2023-09-14] MEDS ORDERED: fentaNYL 50 mcg/mL 1 mL Vial ONE (21:19)
[2023-09-14] MEDS ORDERED: diphenhydrAMINE 50 MG/ML VIAL ONE (22:09)
[2023-09-14] MEDS ORDERED: methylPREDNISolone Sod Succ/PF 125 MG/2 ML VIAL ONE (22:09)
[2023-09-14] MEDS ORDERED: Albuterol 2.5 MG (3 mL) NEB ONE (22:20)
[2023-09-14] MEDS ORDERED: Albuterol 2.5 MG (0.5 mL) NEB ONE (22:20)
[2023-09-14] MEDS ORDERED: Heparin 10,000 UNITS/ 10 ML VIAL ONE (22:31)
[2023-09-14] MEDS ORDERED: Heparin 25,000 units/D5W 500 ML ONE (22:32)
== END 2023-09-14 23:11 | disposition short-term general hospital (02) ==
LOC: CSHERS 19:01
DX: I70.90 Unspecified atherosclerosis (principal); I10 Essential (primary) hypertension; E11.9 Type 2 diabetes mellitus without complications; E78.5 Hyperlipidemia, unspecified; Z79.899 Other long term (current) drug therapy
CPT/HCPCS: 75635; 80053; 85025; 85610; 85730; J3010; 96374; 96375; J1200; J1644; J2930; J7611; Q9967